=== PATIENT | male | born 1975 | race Caucasian/White ===

== ENCOUNTER 2019-03-28 22:09 | Inpatient (IN) | payer BC ==
[~2019-03-28] VITALS: Ht 177.8 cm; Wt 99.8 kg
[~2019-03-28 22:09] MED LIST: AUGMENTIN 875-1 EACH PO; DIAZEPAM5 MG PO; SUBOXONE PO
--- OUTSIDE RECORDS SUMMARY | 2019-03-28 22:12 | XMS REPORT ---
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 Allergies, Adverse Reactions, Alerts This patient has no known allergies or adverse reactions. Medications This patient has no known medications. Results Test Description Test Time Test Comments Text Results Atomic Results Result Comments CT BRAIN WO [place] [address] Patient Name: GIO RADER MR #: [id number] : 1975 Age/Sex: 41/M Req #: [id number] Adm Physician: Ordered by: CHICHI ERYNOLDS MD Report #: [id number] Location: ER Room/Bed: Procedure: [id number] CT/CT BRAIN WO Exam Date: 01/21/17 Exam Time: 2044 REPORT STATUS: Signed Exam: Head CT without contrast History: Dizziness, altered mental status, hypertension Comparison studies: Brain MRI 01/16/[address] of 01/15/2015. Technique: Axial images were obtained from the skull base to the vertex. Coronal and sagittal images reconstructed from the axial data. Intravenous contrast: None Findings: Scalp: No abnormalities. Bones: No fractures, blastic or lytic lesions. Brain sulci: Appropriate for age. Ventricles: Normal in size and configuration. No hydrocephalus. Extra-axial spaces: No masses, no fluid collection. Parenchyma: No abnormal densities. Previously described small foci of signal abnormality in the supratentorial white matter on the brain MRI of 01/16/2015, if present are beyond resolution of the CT. No masses, acute, or acute or chronic vascular insults. Sellar/suprasellar region: No abnormalities. Craniocervical junction: Patent foramen magnum. No Chiari one malformation. IMPRESSION: 1. No acute intracranial abnormalities. 2. No changes from the previous brain right when allowing for differences in modality. Signed by: Dr. Shantelle Jaime M.D. on 01/21/2017 9:12 PM Dictated By: SHANTELLE JAIME MD 11 Transcribed By: MIRANDA on 01/21/172111 COPY TO: CHICHI REYNOLDS MD CHEST SINGLE (PORTABLE) [place] [address] Patient Name: GIO RADER MR #: [id number] : 1975 Age/Sex: 41/M Req #: [id number] Adm Physician: Ordered by: CHICHI REYNOLDS MD Report #: [id number] Location: ER Room/Bed: Procedure: [id number] DX/CHEST SINGLE (PORTABLE) Exam Date: 01/21/17 Exam Time: 2044 REPORT STATUS: Signed EXAM: CHEST SINGLE (PORTABLE), AP 1 view DATE: 01/21/2017 8:33 PM Time stamp on exam: 2038 hours INDICATION: Dizzy, altered mental status, elevated blood pressure COMPARISON: None FINDINGS: LINES/TUBES: None LUNGS: No consolidations or edema. PLEURA: No effusions or pneumothorax. HEART AND MEDIASTINUM: Normal size and contour. BONES AND SOFT TISSUES: No acute findings. IMPRESSION: No acute thoracic abnormality. Signed by: Dr. Merlin Candelaria M.D. on 01/21/2017 9:32 PM Dictated By: MERLIN CANDELARIA MD 31 Transcribed By: MIRANDA on 01/21/172131 COPY TO: CHICHI REYNOLDS MD
[2019-03-28] MEDS ORDERED: SODIUM CHLORIDE 0.9% 1000ML 1,000 ML ONE (23:13)
[2019-03-28] MEDS ORDERED: ACETAMINOPHEN 325 MG TAB ONE (23:13)
[2019-03-28] MEDS ORDERED: SODIUM CHLORIDE 0.9% 1000ML 1,000 ML IV ONE (23:45)
[2019-03-28] MEDS ORDERED: ACETAMINOPHEN 325 MG TAB PO ONE (23:45)
[2019-03-28] MEDS ORDERED: KETOROLAC TROMETHAMINE 30 MG/ML VIAL IV STA (23:46)
[2019-03-28 23:57] LABS: BASOPHILS % 0.2 % (0.0-1.0); EOSINOPHILS % 0.3 % (0.0-6.0); HEMATOCRIT 38.5 % (38.2-49.6); LYMPHOCYTES # (AUTO) 1.5 (1.0-3.2); LYMPHOCYTES % 11.7 % (18.0-39.1); MEAN CORPUSCULAR HEMOGLOBIN 28.6 pg (28-32); MEAN CORPUSCULAR HGB CONC 33.8 g/dL (31-35); MEAN CORPUSCULAR VOLUME 84.8 fL (81-99); MONOCYTES # (AUTO) 1.1 (0.2-0.8); MONOCYTES % 8.2 % (4.4-11.3); NEUTROPHILS # (AUTO) 10.1 (2.1-6.9); NEUTROPHILS % 79.3 % (38.7-80.0); PLATELET COUNT 234 x10e3/uL (140-360); RED BLOOD COUNT 4.54 x10e6/uL (4.3-5.7); RED CELL DISTRIBUTION WIDTH 11.9 % (11.7-14.4)
[2019-03-29 00:02] LABS: BILIRUBIN,URINE NEGATIVE (NEGATIVE); CLARITY,URINE CLEAR (CLEAR); COLOR,URINE YELLOW (YELLOW); KETONES,URINE TRACE (NEGATIVE); LEUKOCYTE ESTERASE ,URINE NEGATIVE (NEGATIVE); NITRITE,URINE NEGATIVE (NEGATIVE); PROTEIN,URINE DIPSTICK NEGATIVE (NEGATIVE); URINE UROBILINOGEN 0.2 mg/dL (0.2 - 1)
[2019-03-29 00:06] LABS: INR 0.98; PROTHROMBIN TIME 13.6 seconds (11.9-14.5)
[2019-03-29 00:07] LABS: PARTIAL THROMBOPLASTIN TIME 33.7 seconds (23.8-35.5)
[2019-03-29 00:12] LABS: AMYLASE 32 U/L (25-125); LIPASE 7 U/L (8-78)
[2019-03-29 00:14] LABS: ALANINE AMINOTRANSFERASE 13 IU/L (0-55); ALBUMIN 4.3 g/dL (3.5-5.0); ALBUMIN/GLOBULIN RATIO 1.4 (0.8-2.0); ALKALINE PHOSPHATASE 68 IU/L (40-150); ANION GAP 15.6 mmol/L (8-16); BLOOD UREA NITROGEN 10 mg/dL (7-26); BUN/CREATININE RATIO 10 (6-25); CARBON DIOXIDE 29 mmol/L (22-29); CHLORIDE 98 mmol/L (98-107); CREATININE, SERUM 0.96 mg/dL (0.72-1.25); EST GLOMERULAR FILTRATION RATE > 60 ML/MIN (60-); GLUCOSE 102 mg/dL (74-118); POTASSIUM 3.6 mmol/L (3.5-5.1); SODIUM 139 mmol/L (136-145)
[2019-03-29 00:16] LABS: BACTERIA,URINE FEW /HPF; EPITHELIAL CELLS,URINE FEW /LPF; MUCUS,URINE MANY (RARE); RBC,URINE 21-50 /HPF (0-5)
[2019-03-29] MEDS ORDERED: SODIUM CHLORIDE 0.9% 50ML 50 ML ONE (00:33)
[2019-03-29] MEDS ORDERED: IOPAMIDOL 370 MG/ML 200 ML INFUS..BTL INJ ONE (00:34)
--- NOTE | 2019-03-29 01:16 | Diagnostic Imaging Report ---
EXAM: CT Abdomen and Pelvis WITH contrast INDICATION: Right lower quadrant pain, fever COMPARISON: None. TECHNIQUE: Abdomen and pelvis were scanned utilizing a multidetector helical scanner from the lung base to the pubic symphysis after administration of IV contrast. Coronal and sagittal reformations were obtained. Routine protocol was performed. Scan was performed when during portal venous phase. IV CONTRAST: 100 mL of Isovue 370 ORAL CONTRAST: None COMPLICATIONS: None RADIATION DOSE: Total DLP: 705 mGy*cm Estimated effective dose: (DLP x 0.015 x size factor) mSv CTDIvol has been reviewed. It is below the limits set by the Radiation Protocol Committee (RPC). Dose modulation, iterative reconstruction, and/or weight based adjustment of the mA/kV was utilized to reduce the radiation dose to as low as reasonably achievable. FINDINGS: LINES and TUBES: None. LOWER THORAX: Unremarkable HEPATOBILIARY: No focal hepatic lesions. No biliary ductal dilation. GALLBLADDER: No radio-opaque stones or sludge. No wall thickening. SPLEEN: No splenomegaly. PANCREAS: No focal masses or ductal dilatation. ADRENALS: No adrenal nodules KIDNEYS/URETERS: Kidneys enhance symmetrically. No hydronephrosis. No cystic or solid mass lesions. No stones. Trace bilateral perinephric fat stranding. GI TRACT: No abnormal distention, wall thickening, or evidence of bowel obstruction. Appendix is enlarged 1.9 cm in diameter. Periappendiceal fat stranding. The appendiceal wall is slightly thickened, hyperenhancing, and heterogeneous. There is a 1.3 cm appendicolith at the appendiceal orifice. There is a 1 cm appendicolith in the proximal appendiceal lumen. No periappendiceal fluid collection. PELVIC ORGANS/BLADDER: Unremarkable. LYMPH NODES: Mild prominence of right ileocolic lymph nodes. No suspicious lymphadenopathy. VESSELS: Unremarkable. PERITONEUM / RETROPERITONEUM: Trace fluid in the pelvis. No free air. BONES: Fixation hardware at L4-L5. SOFT TISSUES: Unremarkable. IMPRESSION: Acute nonperforated appendicitis. A 1.3 cm appendicolith at the appendiceal orifice. Findings discussed with Dr. Ngo at 1:09 AM on 03/29/[address] Messina via telephone. Signed by: Mehdi Messina DO on 03/29/2019 1:13 AM
[2019-03-29] MEDS ORDERED: ACETAMINOPHEN 1000 MG/100 ML IV PRN ×2 (01:45→13:15)
[2019-03-29] MEDS ORDERED: KETOROLAC TROMETHAMINE 30 MG/ML VIAL IM PRN (01:45)
[2019-03-29] MEDS: SODIUM CHLORIDE 0.9% 1000ML 1,000 ML IV SCH ×2 (01:52→07:34)
[2019-03-29] MEDS: PIPER-TAZ 3.375 GM 50 ML IV SCH ×3 (01:52→18:20)
--- NOTE | 2019-03-29 02:31 | NUR ---
PT MOVED TO ER RM 3 AND PLACED IN HOSPITAL BED FOR COMFORT AND SAFETY MEASURES. PT LAYING DOWN IN BED. NAD NOTED AT THIS TIME. BED IS LOCKED AND IN LOWEST POSITION. CALL LIGHT WITHIN REACH IF IN NEED OF ASSISTANCE.
[2019-03-29] MEDS ORDERED: BUPRENORP-NALO1 EACH (06:00)
[2019-03-29] MEDS ORDERED: KETOROLAC TROMETHAMINE 30 MG/ML VIAL IV PRN (07:45)
[2019-03-29] MEDS ORDERED: BUPIVACAINE 0.5%/EPI 30 ML SDV INJ ONE (11:54)
[2019-03-29] MEDS ORDERED: SUGAMMADEX SODIUM 200 MG/2 ML VIAL IV ONE (13:01)
[2019-03-29] MEDS ORDERED: DEXTROSE 5%/LACTATED RINGERS 1,000 ML IV SCH (13:11)
[2019-03-29] MEDS ORDERED: METOCLOPRAMIDE HCL 10 MG/2ML VIAL ONE (13:47)
[2019-03-29] MEDS ORDERED: FENTANYL CITRATE/PF 100MCG/2 ML INJ ONE ×2 (13:47→18:07)
[2019-03-29 15:00] VITALS: BP 134/83
[2019-03-29 15:53] VITALS: BP 134/83
[2019-03-29] MEDS: DEXTROSE 5%/LACTATED RINGERS 1,000 ML IV SCH ×2 (16:00→21:25)
[2019-03-29] MEDS ORDERED: DESFLURANE 240 ML BTL INH ONE (17:46)
[2019-03-29] MEDS ORDERED: ONDANSETRON HCL INJ 2MG/ML 2ML 2 MG/ML VIAL ONE (17:46)
[2019-03-29] MEDS ORDERED: ROCURONIUM BROMIDE 10 MG/ML 5ML VIAL ONE (17:46)
[2019-03-29] MEDS ORDERED: PROPOFOL IV EMULSION 10 MG/ML 20 ML VIAL ONE (17:46)
[2019-03-29] MEDS ORDERED: LIDOCAINE HCL 2% LOCAL INJ 5 ML SDV VIAL INJ ONE (17:46)
[2019-03-29] MEDS ORDERED: ACETAMINOPHEN 1000 MG/100 ML IV ONE (17:46)
[2019-03-29] MEDS ORDERED: DEXAMETHASONE SOD PHOS INJ 4 MG/ML VIAL ONE (17:46)
[2019-03-29] MEDS ORDERED: KETOROLAC TROMETHAMINE 30 MG/ML VIAL ONE (17:46)
[2019-03-29] MEDS ORDERED: KETAMINE HCL INJ 50 MG/ML 10 ML VIAL ONE (18:07)
[2019-03-29] MEDS ORDERED: MIDAZOLAM HCL 2 MG/2 ML VIAL ONE (18:07)
[2019-03-29] MEDS: ONDANSETRON HCL INJ 2MG/ML 2ML 2 MG/ML VIAL IV PRN ×2 (18:15→22:25)
[2019-03-29] MEDS: HYDROMORPHONE 1MG/1ML INJ IV PRN ×2 (18:15→22:25)
[2019-03-29 20:00] VITALS: BP 131/70
[2019-03-29 20:29] VITALS: BP 131/70
[2019-03-29] MEDS: HYDROCODONE/APAP 7.5MG-325MG 1 EA TAB PO PRN (21:24)
[2019-03-30] VITALS (8 sets, daily range): BP systolic 103–132; BP diastolic 58–77
[2019-03-30] MEDS: PIPER-TAZ 3.375 GM 50 ML IV SCH ×3 (00:45→19:13)
[2019-03-30] MEDS: DEXTROSE 5%/LACTATED RINGERS 1,000 ML IV SCH ×3 (02:00→15:00)
--- NOTE | 2019-03-30 03:00 | NUR ---
Vitals rechecked BP 129/66 mmhg NM 65 b/min.
[2019-03-30] MEDS: HYDROMORPHONE 1MG/1ML INJ IV PRN ×6 (03:05→23:55)
[2019-03-30] MEDS: ONDANSETRON HCL INJ 2MG/ML 2ML 2 MG/ML VIAL IV PRN ×6 (03:05→23:55)
[2019-03-30] MEDS: HYDROCODONE/APAP 7.5MG-325MG 1 EA TAB PO PRN ×5 (04:28→21:33)
[2019-03-30 05:25] LABS: BASOPHILS % 0.1 % (0.0-1.0); EOSINOPHILS % 0.1 % (0.0-6.0); HEMATOCRIT 29.6 % (38.2-49.6); HEMOGLOBIN 10.1 g/dL (14.0-18.0); LYMPHOCYTES # (AUTO) 1.6 (1.0-3.2); LYMPHOCYTES % 12.6 % (18.0-39.1); MEAN CORPUSCULAR HEMOGLOBIN 28.9 pg (28-32); MEAN CORPUSCULAR HGB CONC 34.1 g/dL (31-35); MEAN CORPUSCULAR VOLUME 84.6 fL (81-99); MONOCYTES # (AUTO) 0.9 (0.2-0.8); MONOCYTES % 7.5 % (4.4-11.3); NEUTROPHILS # (AUTO) 9.8 (2.1-6.9); NEUTROPHILS % 79.2 % (38.7-80.0); PLATELET COUNT 209 x10e3/uL (140-360); RED CELL DISTRIBUTION WIDTH 11.9 % (11.7-14.4)
[2019-03-30 05:47] LABS: ALANINE AMINOTRANSFERASE 10 IU/L (0-55); ALBUMIN 3.2 g/dL (3.5-5.0); ALBUMIN/GLOBULIN RATIO 1.2 (0.8-2.0); ALKALINE PHOSPHATASE 51 IU/L (40-150); BLOOD UREA NITROGEN 6 mg/dL (7-26); BUN/CREATININE RATIO 7 (6-25); CALCIUM 9.1 mg/dL (8.4-10.2); CARBON DIOXIDE 27 mmol/L (22-29); CHLORIDE 104 mmol/L (98-107); CREATININE, SERUM 0.86 mg/dL (0.72-1.25); EST GLOMERULAR FILTRATION RATE > 60 ML/MIN (60-); GLUCOSE 156 mg/dL (74-118); SODIUM 138 mmol/L (136-145)
--- NOTE | 2019-03-30 07:00 | NUR ---
Received patient lying in bed with eyes open. Respiration even and unlabored without SOB. Call light in reach.
--- NOTE | 2019-03-30 09:30 | NUR ---
ASSESSMENT: No spiritual concerns Pt's and parents at bedside. Intervention: Provided hospitality and information on how to reach nuclear fuels reclamation engineer, if needed. Outcome: Pt and family expressed appreciation for visit. No need to follow at this time. [employer]UG[employer] Vice President [employer] Spiritual Care Department O: [phone]
--- NOTE | 2019-03-30 19:05 | NUR ---
Received bedside report from day nurse. Patient resting in bed, no s/s of distress. All safety measures in place. Family at bedside. Will continue to monitor.
--- NOTE | 2019-03-30 19:10 | NUR ---
Report given to night stocker. respiration even and unlabored without SOB. Call light in reach.
[2019-03-31] VITALS: BP 112/62
[2019-03-31] MEDS: PIPER-TAZ 3.375 GM 50 ML IV SCH ×2 (01:07→08:22)
[2019-03-31 04:00] VITALS: BP 120/74
[2019-03-31] MEDS: ONDANSETRON HCL INJ 2MG/ML 2ML 2 MG/ML VIAL IV PRN (04:11)
[2019-03-31] MEDS: HYDROMORPHONE 1MG/1ML INJ IV PRN (04:11)
--- NOTE | 2019-03-31 07:00 | NUR ---
bedside shift report received pt in stable condition, no distress noted, denies pain at this time, updated on poc voiced understanding, call light in reach will continue to monitor
--- NOTE | 2019-03-31 07:17 | NUR ---
Bedside report given to day nurse. Patient resting in bed, no s/s of distress. Family at bedside. All safety measures in place.
[2019-03-31 08:09] VITALS: BP 134/68
[2019-03-31] MEDS: HYDROCODONE/APAP 7.5MG-325MG 1 EA TAB PO PRN ×2 (08:20→12:25)
[2019-03-31] MEDS: DEXTROSE 5%/LACTATED RINGERS 1,000 ML IV SCH (08:21)
[2019-03-31 08:22] VITALS: BP 134/68
[2019-03-31 12:09] VITALS: BP 134/78
--- NOTE | 2019-03-31 20:05 | Operative Report ---
DATE OF PROCEDURE: 03/29/2019 SURGEON: Asa Thrasher MD PREOPERATIVE DIAGNOSIS: Acute appendicitis. POSTOPERATIVE DIAGNOSIS: Acute appendicitis. OPERATION PERFORMED: Laparoscopic appendectomy. INTAKE RN: GUSTAVO Garcia. ANESTHESIA: General. COMPLICATIONS: None. ESTIMATED BLOOD LOSS: Minimal. DESCRIPTION OF PROCEDURE: With the patient lying in bed in the supine position under good general endotracheal anesthesia, the abdomen was prepped with Betadine solution and draped in the usual manner. A Veress needle was introduced into the umbilicus and pneumoperitoneum was established without any difficulty. The 12 mm trocar was placed into the umbilicus and a 10 mm video laparoscope was placed into the intraabdominal cavity. Under direct vision, a 5 mm trocar was placed in the suprapubic region and another 5 mm trocar was placed in the left lower quadrant. Video laparoscopy at this point revealed an inflammatory mass in the right lower quadrant. The appendix was plastered up against the lateral wall being covered by the terminal ileum. The rest of the abdominal exploration was otherwise within normal limits. The terminal ileum was then slowly and carefully removed from its adhesions to the inflamed appendix. The appendix was rather thickened and enlarged. The appendix was then mobilized off the retroperitoneum so that we could be a good access to the base of the appendix. The inflammatory process went all the way to the base of the of the appendix. The base of the appendix was then freed up and divided with an application of the Endo-DIGNA stapler. The mesentery of the appendix was divided with two applications of the Endo-DIGNA vascular stapler and the appendix was just totally and completely , placed in a pouch and removed through the umbilicus without any difficulty. Video laparoscopy was then again carried out. Hemostasis was ascertained. The abdomen was irrigated. All the excess fluid was aspirated. The pneumoperitoneum was evacuated and all the trocars were removed under direct vision. The midline fascia at the umbilicus was then closed with a [id number] of 0 Vicryl. All layers were infiltrated on the way out with a solution of 0.25% Marcaine, subcutaneous tissue was approximated with 3-0 Vicryl and the skin was closed with subcuticular 5-0 Vicryl. Benzoin, Steri-Strips and Band-Aids were applied. The sponge, lap, and needle count was correct. The patient tolerated the procedure well and returned to the recovery room in stable condition. MD PEYTON Danielle/DEE /[id number]
== END 2019-03-31 15:01 | disposition home or self-care (01) | DRG 342 ==
LOC: ER 22:09 → UNDOADMIN 03-29 02:38 → ERHOLD 03-29 02:38 → OR 03-29 11:43 → PACU V 03-29 13:14 → MED/SURG 03-29 15:35
PROVIDERS: ADMIT Surgery; ATTEND Surgery
PROC: 0DTJ4ZZ Resection of Appendix, Percutaneous Endoscopic Approach (ICD-10-PCS; principal; 2019-03-29 12:00)
DX: K35.30 Acute appendicitis with localized peritonitis, without perforation or gangrene (principal); F11.20 Opioid dependence, uncomplicated; Z82.49 Family history of ischemic heart disease and other diseases of the circulatory system; Z88.8 Allergy status to other drugs, medicaments and biological substances; M54.9 Dorsalgia, unspecified
CPT/HCPCS: 36415; 74177; 80053; 81001; 82150; 83605; 83690; 85025; 85610; 85730; 87040; 88304; 99284; C1766; J1100; J1170; J1885; J2001; J2250; J2405; J2543; J2765; J3010; J7030; Q9967

== ENCOUNTER 2019-12-08 18:37 | Observation (INO) | payer BC ==
[~2019-12-08] VITALS: Ht 177.8 cm; Wt 95.3 kg
[~2019-12-08 18:37] MED LIST changes: +BUPRENORP-NALO1 EACH
[2019-12-08] MEDS ORDERED: LORAZEPAM INJ 2 MG/ML VIAL IV ONE (19:00)
[2019-12-08 19:10] LABS: BASOPHILS # (AUTO) 0.1 (0.0-0.1); BASOPHILS % 0.8 % (0.0-1.0); EOSINOPHILS # (AUTO) 0.1 (0.0-0.4); EOSINOPHILS % 0.8 % (0.0-6.0); HEMATOCRIT 39.6 % (38.2-49.6); LYMPHOCYTES # (AUTO) 2.6 (1.0-3.2); LYMPHOCYTES % 38.4 % (18.0-39.1); MEAN CORPUSCULAR HEMOGLOBIN 28.5 pg (28-32); MEAN CORPUSCULAR HGB CONC 35.4 g/dL (31-35); MEAN CORPUSCULAR VOLUME 80.7 fL (81-99); MONOCYTES # (AUTO) 0.6 (0.2-0.8); MONOCYTES % 8.7 % (4.4-11.3); NEUTROPHILS # (AUTO) 3.4 (2.1-6.9); NEUTROPHILS % 51.1 % (38.7-80.0); PLATELET COUNT 262 x10e3/uL (140-360); RED BLOOD COUNT 4.91 x10e6/uL (4.3-5.7); RED CELL DISTRIBUTION WIDTH 12.1 % (11.7-14.4)
[2019-12-08 19:29] LABS: ALANINE AMINOTRANSFERASE 20 IU/L (0-55); ALBUMIN 5.1 g/dL (3.5-5.0); ALBUMIN/GLOBULIN RATIO 1.7 (0.8-2.0); ALKALINE PHOSPHATASE 65 IU/L (40-150); ANION GAP 21.3 mmol/L (8-16); BLOOD UREA NITROGEN 19 mg/dL (7-26); BUN/CREATININE RATIO 15 (6-25); CALCIUM 9.9 mg/dL (8.4-10.2); CARBON DIOXIDE 23 mmol/L (22-29); CHLORIDE 103 mmol/L (98-107); CREATINE KINASE 776 IU/L (30-200); CREATININE, SERUM 1.29 mg/dL (0.72-1.25); EST GLOMERULAR FILTRATION RATE > 60 ML/MIN (60-); GLUCOSE 102 mg/dL (74-118); POTASSIUM 3.3 mmol/L (3.5-5.1); SODIUM 144 mmol/L (136-145)
[2019-12-08] MEDS ORDERED: PROPRANOLOL HCL10 MG PO (20:31)
[2019-12-08] MEDS ORDERED: PROPRANOLOL HCL 10 MG TAB PO SCH (21:00)
[2019-12-08 23:59] VITALS: BP 153/97
[2019-12-09] VITALS (9 sets, daily range): BP systolic 119–153; BP diastolic 67–102
[2019-12-09] MEDS ORDERED: BENZONATATE 100 MG CAP PO PRN (00:30)
[2019-12-09] MEDS ORDERED: POLYETHYLENE GLYCOL 3350 17 GM PACK PO PRN (00:30)
[2019-12-09] MEDS ORDERED: HYDRALAZINE HCL 20 MG/ML VIAL IV PRN (00:30)
[2019-12-09] MEDS ORDERED: DEXTROSE 50% SYRINGE 50 ML IV PRN (00:30)
[2019-12-09] MEDS ORDERED: MELATONIN 5 MG TABLET PO PRN (00:30)
[2019-12-09] MEDS ORDERED: DOCUSATE SODIUM 100 MG CAP PO PRN (00:30)
[2019-12-09] MEDS ORDERED: IBUPROFEN 600 MG TAB PO PRN (00:30)
[2019-12-09] MEDS ORDERED: ONDANSETRON HCL INJ 2MG/ML 2ML 2 MG/ML VIAL IV PRN (00:30)
[2019-12-09] MEDS ORDERED: GUAIFENESIN/CODEINE 10 ML CUP PO PRN (00:30)
[2019-12-09] MEDS ORDERED: ACETAMINOPHEN 325 MG TAB PO PRN (00:30)
[2019-12-09] MEDS: LORAZEPAM 0.5 MG TAB PO PRN ×3 (01:05→10:50)
[2019-12-09] MEDS: POTASSIUM CHLORIDE 20 MEQ TAB CR PO STA ×2 (01:05→01:15)
[2019-12-09] MEDS: SODIUM CHLORIDE 0.9% 1000ML 1,000 ML IV SCH ×3 (01:05→13:50)
[2019-12-09] MEDS: HYDROCODONE/APAP 5MG-325MG TAB PO PRN ×3 (04:46→20:50)
[2019-12-09 05:00] LABS: CREATINE KINASE 611 IU/L (30-200)
[2019-12-09 05:01] LABS: CHOL/HDL RATIO 2.9 (3.9-4.7)
[2019-12-09] MEDS ORDERED: LORAZEPAM 0.5 MG TAB PO PRN (14:45)
[2019-12-09] MEDS: LORAZEPAM 1 MG TAB PO PRN ×2 (14:47→22:45)
[2019-12-09 16:29] LABS: CREATINE KINASE 505 IU/L (30-200)
[2019-12-09 16:54] LABS: CREATINE KINASE MB < 1.00 ng/mL (0-4.3)
[2019-12-09] MEDS ORDERED: ENOXAPARIN SOD INJ 40 MG/0.4 ML SYR SC SCH (17:00)
[2019-12-09] MEDS: QUETIAPINE FUMARATE 25 MG TAB PO SCH (19:16)
[2019-12-10] VITALS: BP 117/71
[2019-12-10] MEDS: QUETIAPINE FUMARATE 25 MG TAB PO SCH ×2 (00:13→06:00)
[2019-12-10] MEDS: SODIUM CHLORIDE 0.9% 1000ML 1,000 ML IV SCH (03:10)
[2019-12-10] MEDS: HYDROCODONE/APAP 5MG-325MG TAB PO PRN (06:10)
[2019-12-10 06:22] LABS: BASOPHILS # (AUTO) 0.1 (0.0-0.1); BASOPHILS % 1.1 % (0.0-1.0); EOSINOPHILS # (AUTO) 0.1 (0.0-0.4); EOSINOPHILS % 2.2 % (0.0-6.0); HEMATOCRIT 36.1 % (38.2-49.6); HEMOGLOBIN 12.2 g/dL (14.0-18.0); LYMPHOCYTES # (AUTO) 2.7 (1.0-3.2); LYMPHOCYTES % 58.4 % (18.0-39.1); MEAN CORPUSCULAR HEMOGLOBIN 28.6 pg (28-32); MEAN CORPUSCULAR HGB CONC 33.8 g/dL (31-35); MEAN CORPUSCULAR VOLUME 84.5 fL (81-99); MONOCYTES # (AUTO) 0.4 (0.2-0.8); MONOCYTES % 9.3 % (4.4-11.3); NEUTROPHILS # (AUTO) 1.3 (2.1-6.9); NEUTROPHILS % 28.8 % (38.7-80.0); PLATELET COUNT 211 x10e3/uL (140-360); RED BLOOD COUNT 4.27 x10e6/uL (4.3-5.7); RED CELL DISTRIBUTION WIDTH 12.2 % (11.7-14.4)
[2019-12-10 06:50] LABS: ALANINE AMINOTRANSFERASE 14 IU/L (0-55); ALBUMIN 4.1 g/dL (3.5-5.0); ALBUMIN/GLOBULIN RATIO 1.7 (0.8-2.0); ALKALINE PHOSPHATASE 53 IU/L (40-150); ANION GAP 14.5 mmol/L (8-16); BLOOD UREA NITROGEN 14 mg/dL (7-26); BUN/CREATININE RATIO 15 (6-25); CALCIUM 9.1 mg/dL (8.4-10.2); CARBON DIOXIDE 25 mmol/L (22-29); CHLORIDE 105 mmol/L (98-107); CREATININE, SERUM 0.92 mg/dL (0.72-1.25); EST GLOMERULAR FILTRATION RATE > 60 ML/MIN (60-); GLUCOSE 94 mg/dL (74-118); POTASSIUM 3.5 mmol/L (3.5-5.1); SODIUM 141 mmol/L (136-145)
[2019-12-10] MEDS: LORAZEPAM 1 MG TAB PO PRN (06:55)
[2019-12-10 09:18] VITALS: BP 128/83
[2019-12-10 09:32] VITALS: BP 128/83
[2019-12-10] MEDS ORDERED: CLONAZEPAM 1 MG TAB PO STA (09:46)
[2019-12-10] MEDS ORDERED: QUETIAPINE FUMARATE 25 MG TAB PO PRN (10:00)
[2019-12-10] MEDS ORDERED: CLONAZEPAM 1 MG TAB PO ONE (10:10)
[2019-12-10] MEDS ORDERED: ZOLOFT50 MG PO (10:57)
[2019-12-10] MEDS ORDERED: ONDANSETRON HCL 4 MG ORAL DISINTEGRATING TAB PO PRN (11:00)
[2019-12-11] MEDS ORDERED: SERTRALINE HCL 50 MG TAB PO SCH (09:00)
== END 2019-12-10 11:30 | disposition home or self-care (01) ==
LOC: ER 19:01 → ERHOLD 23:19 → MED/SURG3 12-09 00:04
PROVIDERS: ADMIT Internal Medicine; ATTEND Internal Medicine
DX: R07.89 Other chest pain (principal); F19.10 Other psychoactive substance abuse, uncomplicated; F41.1 Generalized anxiety disorder; F43.23 Adjustment disorder with mixed anxiety and depressed mood; Z11.59 Encounter for screening for other viral diseases
CPT/HCPCS: 36415 ×3; 71045; 80053 ×2; 80061; 82550 ×2; 82553 ×2; 84484 ×2; 85025 ×2; 93005; 99284; G0378 ×3; J1650; J2060; J7030; U0002